=== PATIENT | male | born 1960 | race Caucasian/White ===

== ENCOUNTER → 2017-07-15 | Outpatient (CLI) | payer OTHER ==
[~2017-07-15] MED LIST: AMITRIPTYLINE H50 MG PO; ATIVAN1 MG PO; BENTYL10 MG PO; DELTASONE10 MG PO; LEVSIN/SL0.125 MG SL; LEXAPRO10 MG PO; NORVASC2.5 MG PO; NORVASC5 MG PO; PENTASA500 MG PO; PROTONIX40 MG PO; ULTRAM50 MG PO; ZYPREXA10 MG PO
== END | disposition disaster alternative care site (69) ==
LOC: GKIC 07-13 13:30
DX: R41.3 Other amnesia (principal)